=== PATIENT | female | born 1960 | race Caucasian/White ===

== ENCOUNTER 2024-02-16 23:36 | Emergency (ER) | payer BC, MEDICAID, SELFPAY ==
[2024-02-16 23:38] VITALS: BP 171/82; PULSE 105; RESP 18; TEMP 36.9; O2SAT 95; BMI 51.3
--- NOTE | 2024-02-17 00:15 | EX.ED.DYSGE1 ---
HPI History of Present Illness Chief Complaint: Lower Extremity Injury Informant: patient and EMS Narrative Narrative: 63-year-old female presenting to the emergency room with a chief complaint of right knee pain. EMS states that the patient went to the [facility] but they were full she walked across the parking lot and called EMS with knee pain. Patient states that she went to sit down felt a click in her knee and now has a burning pain. She notes that it is over the anterior aspect of the kneecap. She states that she was told that she has arthritis in her knees. [facility] Medical History Panic attack Hypertension Arthritis Home Medications ?Medication ?Instructions ?Recorded ?Last Taken ?Type NK 02/17/24 Unknown History Allergy/AdvReac Type Severity Reaction Status Date / Time Penicillins Allergy Hives Verified 02/16/24 23:38 aspirin AdvReac Hives Verified 02/16/24 23:38 Social History Smoking Status: Never smoker Homelessness:: Unsheltered ROS ROS ED Constitutional Constitutional ED: Denies chills or weight loss Eyes Eyes: Denies change in vision or diplopia ENT ENT ED: Denies ear pain, rhinorrhea or sore throat Cardiovascular Cardiovascular: Denies chest pain, orthopnea, palpitations or racing heartbeat Respiratory/Chest Respiratory/Chest: Denies cough, dyspnea or orthopnea Gastrointestinal Gastrointestinal: Denies abdominal pain, diarrhea, nausea or vomiting Genitourinary Genitourinary ED: Denies dysuria, hematuria or urinary frequency Musculoskeletal Musculoskeletal: Reports other Details: Burning right knee pain ; Denies arthralgias or myalgias Integumentary Denies abscess or rash Neurologic Neurologic: Denies headache(s) or weakness Psychiatric Psychiatric: Denies anxiety, depression, suicidal ideation or suicidal thoughts Endocrine Endocrinology: Denies polydipsia, polyphagia or polyuria Allergic/Immunologic Allergic/Immunologic ED: Denies mouth swelling, tongue swelling or urticaria EXAM Physical Exam Const Vital Signs: 02/16/24 23:38 02/17/24 01:10 Temperature 98.5 F 98.1 F Temperature Source Oral Pulse Rate 105 H 99 Respiratory Rate 18 18 Blood Pressure 171/82 H 159/85 H Blood Pressure Mean 111 109 Pulse Ox 95 93 Oxygen Delivery Method Room Air Positive well nourished, well developed and obese General Appearance ED: well developed and NAD Nutritional Appearance: obese HEENT Reports normocephalic, head/scalp atraumatic and moist mucous membranes Eyes PERRL and EOMs intact bilaterally Neck no lymphadenopathy, supple and no JVD Resp normal respiratory effort and clear to auscultation bilaterally Cardio regular rate, regular rhythm and no murmurs GI normal to inspection, nondistended, normoactive bowel sounds and non-tender Palpation: soft Back/Spine no CVA tenderness and normal ROM Extremity Extremity Narrative: Patient reports tenderness to palpation of the patella. The body habitus significantly limits the examination. However the ligaments appear stable. There is no joint line pain. No posterior pain no significant swelling or effusion is noted General Extremety ED: Negative for edema General Extremity: Negative for edema Neuro oriented x3 and CN's II-XII intact bilaterally Sensorium / Orientation: alert Motor Exam: strength 5/5 throughout Psych mental status grossly normal Mood & Affect: Negative for depressed or tearful Skin no rashes or lesions noted and no wounds MDM MDM MDM Narrative Medical decision making narrative: Differential diagnosis includes but not limited to patellofemoral syndrome arthritis ligamentous injury effusion meniscal injury My independent interpretation of the plain films is mild degenerative changes. No significant effusion. Based on the patient bending her knee and feeling a pop and a burning pain around the patella this could be a degree of patellofemoral syndrome complicated by the patient's morbid obesity. Would recommend Pawel wrap ice ibuprofen. She was given some ibuprofen and Pawel wrap here. Follow-up as needed with primary care. She is asked for local orthopedist and I will give them to Dr. Nair and as he is on-call tonight for no doc. History & Record Review Discussion w/independent historian: Patient Radiography Diagnostic Testing: Clinical Impression(s) from Imaging Studies Knee X-Ray 02/17/24 00:25 IMPRESSION: No evidence of fracture. Mild degenerative changes. Electronically Signed: Daisy Clancy MD at 0:59 EST Reading Location ID and State: [facility] / [place] Tel , Service support , Discharge Plan Triage Chief Complaint: Lower Extremity Injury ED Provider: Clarence El Dx/Rx/DC Orders Clinical Impression: Acute knee pain, Patella-femoral syndrome Instructions: Patellofemoral Pain Syndrome Prescriptions: No Action NK Primary Care Provider: Care Physician,No Primary Referrals: Lamont Bauer MD [Med Staff - Active Staff] - As Needed (for orthopedics) Care Physician,No Primary [Primary Care Provider] - Print Language: Sudanese Disposition Disposition: Home, Self Care Discharge Date/Time: 02/17/24 01:12
[2024-02-17] MEDS: Ibuprofen 600 MG Tablet PO (00:20)
--- NOTE | 2024-02-17 00:25 | RAD_ITS ---
INDICATION: pain EXAMINATION/TECHNIQUE: X-RAY - RIGHT XR Knee Complete 4 Views or More 4 VIEWS COMPARISON: No relevant prior comparison study available FINDINGS: BONES: No fracture demonstrated. Mild joint space narrowing with osteophytes at the patellofemoral and medial compartments. JOINTS: No dislocation. SOFT TISSUES: Unremarkable. RAD/Knee 4 or More Views IMPRESSION: No evidence of fracture. Mild degenerative changes. Electronically Signed: Daisy Clancy MD at 0:59 EST ,
[2024-02-17 01:10] VITALS: BP 159/85; PULSE 99; RESP 18; TEMP 36.7; O2SAT 93
== END 2024-02-17 01:12 | disposition home or self-care (01) ==
PROVIDERS: Emergency Provider Emergency Medicine; Visit Provider Emergency Medicine
DX: M22.2X1 Patellofemoral disorders, right knee (principal); E66.01 Morbid (severe) obesity due to excess calories; M17.0 Bilateral primary osteoarthritis of knee; Z88.0 Allergy status to penicillin; Z59.02 Unsheltered homelessness
CPT/HCPCS: 73564; 99284